=== PATIENT | female | born 1990 | race Two or more races ===

== ENCOUNTER 2021-05-31 10:41 | Emergency (ER) | payer MEDICAID ==
[~2021-05-31] VITALS: Ht 170.2 cm; Wt 75.0 kg
[2021-05-31 10:53] VITALS: BP 108/47
== END 2021-05-31 13:26 | disposition home or self-care (01) ==
LOC: ER 10:41
DX: R21 Rash and other nonspecific skin eruption (principal); Z98.890 Other specified postprocedural states
CPT/HCPCS: 99281